=== PATIENT | female | born 1955 | race Caucasian/White ===

== ENCOUNTER → 2016-09-15 | Outpatient (CLI) | payer OTHER | LOC: WI 13:42 | PROVIDERS: ATTEND Internal Medicine Medical Oncology | DX: Z12.31 Encounter for screening mammogram for malignant neoplasm of breast (principal) | CPT/HCPCS: 77067; G0202 ==

== ENCOUNTER → 2017-10-19 | Outpatient (CLI) | payer OTHER ==
--- NOTE | 2017-10-19 14:02 | RADIOLOGY REPORT (SQ) ---
EXAM DESCRIPTION: VENOUS UNILATERAL LOWER COMPLETED DATE/TIME: 10/19/2017 1:53 pm REASON FOR STUDY: LLE PAIN M79.606 PAIN IN LEG, UNSPECIFIED COMPARISON: None. TECHNIQUE: Dynamic and static collins scale and color images acquired of the left leg venous system. Se lected spectral images acquired with additional compression and augmentation maneuvers. The contralat eral common femoral vein and saphenofemoral junction were also imaged. Images stored on PACS. LIMITATIONS: None. FINDINGS: COMMON FEMORAL: Normal phasicity, compression and augmentation. No visualized echogenic ma terial on collins scale. No defects on color images. FEMORAL: Normal compression and augmentation. No visualized echogenic material on collins scale. No defe cts on color images. POPLITEAL: Normal compression, augmentation. No visualized echogenic material on collins scale. No defec ts on color images. CALF VESSELS: Normal compression, augmentation. No visualized echogenic material on collins scale. No de fects on color images. GSV and SSV: Normal compression, augmentation. No visualized echogenic material on collins scale. No def ects on color images. ANY DEEP VENOUS INSUFFICIENCY: Not evaluated. ANY EVIDENCE OF POPLITEAL CYST: No. OTHER: No other significant finding. CONTRALATERAL COMMON FEMORAL VEIN AND SAPHENOFEMORAL JUNCTION: Normal phasicity, compression and augmentation. No visualized echogenic material on collins scale. No de fects on color images. IMPRESSION: NO EVIDENCE DVT OR SVT IN THE LEFT LEG. TECHNICAL DOCUMENTATION: JOB ID: [id number]- All Rights Reserved Reading location - IP/workstation name: [email or web address]
== END ==
LOC: SP 12:40
PROVIDERS: ATTEND Internal Medicine Medical Oncology
DX: M79.606 Pain in leg, unspecified (principal)
CPT/HCPCS: 93971